=== PATIENT | male | born 2000 | race Two or more races ===

== ENCOUNTER 2024-06-17 16:51 | Inpatient (IN) | payer OTHER ==
[~2024-06-17] VITALS: Ht 170.2 cm; Wt 84.7 kg
[2024-06-17 18:47] LABS: BASOPHILS % (AUTO) 0.2 % (0.0-2.0); EOSINOPHILS % (AUTO) 0.2 % (1.0-6.0); HEMATOCRIT 44.2 % (41-53); HEMOGLOBIN 14.5 g/dL (13.5-17.5); LYMPHOCYTES # (AUTO) 1.6 K/uL (1.0-4.8); LYMPHOCYTES % (AUTO) 16.8 % (22.0-44.0); MEAN CORPUSCULAR HEMOGLOBIN 30.3 pg (26.0-34.0); MEAN CORPUSCULAR HGB CONC 32.7 G/dL (31.0-37.0); MEAN CORPUSCULAR VOLUME 93 fL (80-100); MONOCYTES # (AUTO) 0.5 K/uL (0.1-1.0); MONOCYTES % (AUTO) 5.3 % (2.0-9.0); NEUTROPHILS # (AUTO) 7.2 K/uL (1.8-7.7); NEUTROPHILS % (AUTO) 77.5 % (40.0-70.0); PLATELET COUNT (AUTO) 272 K/uL (150-450); RED BLOOD CELL COUNT(AUTO) 4.77 MIL/uL (4.50-5.90); WHITE BLOOD COUNT (AUTO) 9.3 K/uL (4.5-11.0)
[2024-06-17 18:54] LABS: ANION GAP 10 mmol/L (8-16); CALCIUM, TOTAL 9.1 mg/dL (8.8-10.5); CARBON DIOXIDE 27 mmol/L (22-29); CHLORIDE 105 mmol/L (98-107); CREATININE 0.85 mg/dL (0.60-1.30); GLOMERULAR FILTR. RATE CALC > 60 mL/min (>60); GLUCOSE,RANDOM 100 mg/dL (70-110); POTASSIUM 4.1 mmol/L (3.5-5.1); SODIUM SERUM 142 mmol/L (136-145); UREA NITROGEN, BLOOD 14 mg/dL (7-18)
[2024-06-17 19:36] LABS: COVID AG,FIA SOURCE NASAL SWAB
[2024-06-17 19:55] LABS: SARS-COV2 (COVID) ANTIGEN,FIA Negative (Negative)
[2024-06-18] VITALS (8 sets, daily range): BP systolic 108–134; BP diastolic 65–83; PULSE 50–60; RESP 18–19; TEMP 97.4–98.4; O2SAT 97–100
[2024-06-18 06:07] LABS: HIV 1-2 SCREEN 4TH GEN W/RFLX Non Reactive (Non Reactive)
[2024-06-18] MEDS ORDERED: SODIUM CHLORIDE 3% 15 ML NEB SOLUTION NEB ONE (07:46)
[2024-06-19 03:43] VITALS: BP 117/79; PULSE 66; RESP 20; TEMP 97.7; O2SAT 96
[2024-06-19 07:06] VITALS: BP 128/75; PULSE 68; RESP 18; TEMP 97.9; O2SAT 100
[2024-06-19 07:27] LABS: BASOPHILS % (AUTO) 0.6 % (0.0-2.0); EOSINOPHILS % (AUTO) 1.9 % (1.0-6.0); HEMATOCRIT 46.2 % (41-53); HEMOGLOBIN 15.6 g/dL (13.5-17.5); LYMPHOCYTES # (AUTO) 2.1 K/uL (1.0-4.8); LYMPHOCYTES % (AUTO) 25.4 % (22.0-44.0); MEAN CORPUSCULAR HGB CONC 33.8 G/dL (31.0-37.0); MEAN CORPUSCULAR VOLUME 92 fL (80-100); MONOCYTES # (AUTO) 0.4 K/uL (0.1-1.0); MONOCYTES % (AUTO) 5.1 % (2.0-9.0); NEUTROPHILS # (AUTO) 5.5 K/uL (1.8-7.7); PLATELET COUNT (AUTO) 268 K/uL (150-450); RED BLOOD CELL COUNT(AUTO) 5.05 MIL/uL (4.50-5.90); RED CELL DISTRIBUTION WIDTH 13.1 % (11.5-14.5); WHITE BLOOD COUNT (AUTO) 8.2 K/uL (4.5-11.0)
[2024-06-19 07:35] LABS: ANION GAP 6 mmol/L (8-16); CALCIUM, TOTAL 9.1 mg/dL (8.8-10.5); CARBON DIOXIDE 30 mmol/L (22-29); CHLORIDE 105 mmol/L (98-107); CREATININE 0.85 mg/dL (0.60-1.30); GLOMERULAR FILTR. RATE CALC > 60 mL/min (>60); GLUCOSE,RANDOM 105 mg/dL (70-110); SODIUM SERUM 141 mmol/L (136-145); UREA NITROGEN, BLOOD 10 mg/dL (7-18)
[2024-06-19 17:23] VITALS: BP 130/76; PULSE 79; RESP 19; TEMP 98.9; O2SAT 97
[2024-06-19 19:39] VITALS: BP 125/87; PULSE 60; RESP 18; TEMP 97.5; O2SAT 98
[2024-06-20 00:33] LABS: MTB PCR w/Rif. Resistance-SPUT NOT DETECTED (Not Detectd)
[2024-06-20 04:59] VITALS: BP 120/85; PULSE 60; RESP 18; TEMP 97.6; O2SAT 98
[2024-06-20 09:06] VITALS: BP 136/88; PULSE 61; RESP 18; TEMP 98.3; O2SAT 99
[2024-06-20 19:18] VITALS: BP 135/61; PULSE 86; RESP 18; TEMP 97.6; O2SAT 100
[2024-06-20 22:11] LABS: MTB PCR w/Rif. Resistance-SPUT NOT DETECTED (Not Detectd)
[2024-06-21 05:02] VITALS: BP 122/75; PULSE 63; RESP 18; TEMP 98.3; O2SAT 99
[2024-06-21 08:20] VITALS: BP 129/72; PULSE 65; RESP 18; TEMP 98; O2SAT 99
[2024-06-21 19:15] VITALS: BP 125/78; PULSE 60; RESP 18; TEMP 97.6; O2SAT 98
[2024-06-22 04:54] VITALS: BP 132/89; PULSE 61; RESP 18; TEMP 97.8; O2SAT 99
[2024-06-22 07:13] VITALS: BP 117/69; PULSE 60; RESP 18; TEMP 97.6; O2SAT 100
[2024-06-22 08:12] VITALS: BP 156/74; PULSE 70; RESP 18; TEMP 97.8; O2SAT 96
[2024-06-22 15:00] VITALS: BP 148/78; PULSE 68; RESP 20; TEMP 98.2; O2SAT 97
[2024-06-23 05:03] VITALS: BP 121/79; PULSE 60; RESP 19; TEMP 97.9; O2SAT 97
[2024-06-23 08:00] VITALS: BP 135/72; PULSE 70; RESP 19; TEMP 98.2; O2SAT 97
[2024-06-23 18:06] LABS: QUANTIFERON+, Nil Value 0.02 IU/mL; QUANTIFERON+,Mitogen Value >10.00 IU/mL; QUANTIFERON+,TB1 Antigen Value 0.08 IU/mL; QUANTIFERON+,TB2 Antigen Value 0.06 IU/mL; QUANTIFERON, TB GOLD PLUS Negative (Negative)
[2024-06-23] MEDS: HALOPERIDOL LACTATE 5 MG/ML VIAL IM ONE (20:08)
[2024-06-23 20:27] VITALS: BP 164/87; PULSE 103; RESP 20; TEMP 99.5; O2SAT 98
[2024-06-24 03:50] VITALS: BP 113/94; PULSE 78; RESP 18; O2SAT 100
[2024-06-24 08:28] VITALS: BP 138/92; PULSE 66; RESP 18; TEMP 98.3; O2SAT 99
[2024-06-24] MEDS: LORazepam 2 MG/ML VIAL IM ONE (08:48)
[2024-06-24] MEDS: HALOPERIDOL LACTATE 5 MG/ML VIAL IM ONE (18:25)
[2024-06-24 19:34] VITALS: BP 109/66; PULSE 63; RESP 18; TEMP 97.5; O2SAT 98
[2024-06-25 04:57] VITALS: BP 132/87; PULSE 70; RESP 18; TEMP 98.1; O2SAT 98
[2024-06-25 08:03] VITALS: BP 139/73; PULSE 111; RESP 18; TEMP 97.9; O2SAT 95
[2024-06-25] MEDS: DIVALPROEX SODIUM 500 MG DR TABLET PO SCH (12:13)
[2024-06-25] MEDS: RisperiDONE 2 MG TABLET PO SCH (12:13)
[2024-06-25 15:38] VITALS: BP 147/79; PULSE 126; RESP 18; TEMP 98.5; O2SAT 97
[2024-06-25] MEDS: HALOPERIDOL 5 MG TABLET PO PRN (15:51)
[2024-06-25] MEDS: HALOPERIDOL LACTATE 5 MG/ML VIAL IM ONE (18:40)
[2024-06-25] MEDS: LORazepam 2 MG/ML VIAL IM ONE (18:40)
[2024-06-25] MEDS: DiphenhydrAMINE HCL 50 MG/ML VIAL IM ONE (18:40)
[2024-06-25 20:13] VITALS: BP 126/66; PULSE 76; RESP 18; TEMP 97.8; O2SAT 95
[2024-06-26 20:04] VITALS: BP 133/81; PULSE 70; RESP 18; TEMP 98.4; O2SAT 96
[2024-06-27 05:42] VITALS: BP 140/79; PULSE 103; RESP 18; TEMP 98.5; O2SAT 97
[2024-06-27 08:49] VITALS: BP 121/69; PULSE 90; RESP 20; TEMP 97.5; O2SAT 98
[2024-06-27] MEDS: BENZTROPINE MESYLATE 0.5 MG TABLET PO SCH (11:30)
[2024-06-27 12:14] LABS: BASOPHILS % (AUTO) 0.4 % (0.0-2.0); EOSINOPHILS % (AUTO) 0.4 % (1.0-6.0); HEMATOCRIT 41.7 % (41-53); HEMOGLOBIN 14.1 g/dL (13.5-17.5); LYMPHOCYTES # (AUTO) 2.2 K/uL (1.0-4.8); LYMPHOCYTES % (AUTO) 22.6 % (22.0-44.0); MEAN CORPUSCULAR HEMOGLOBIN 30.7 pg (26.0-34.0); MEAN CORPUSCULAR HGB CONC 33.8 G/dL (31.0-37.0); MEAN CORPUSCULAR VOLUME 91 fL (80-100); MONOCYTES # (AUTO) 0.8 K/uL (0.1-1.0); MONOCYTES % (AUTO) 7.8 % (2.0-9.0); NEUTROPHILS # (AUTO) 6.7 K/uL (1.8-7.7); NEUTROPHILS % (AUTO) 68.8 % (40.0-70.0); PLATELET COUNT (AUTO) 209 K/uL (150-450); RED BLOOD CELL COUNT(AUTO) 4.58 MIL/uL (4.50-5.90); RED CELL DISTRIBUTION WIDTH 12.8 % (11.5-14.5); WHITE BLOOD COUNT (AUTO) 9.8 K/uL (4.5-11.0)
[2024-06-27 12:23] LABS: ANION GAP 11 mmol/L (8-16); CALCIUM, TOTAL 9.4 mg/dL (8.8-10.5); CARBON DIOXIDE 26 mmol/L (22-29); CHLORIDE 102 mmol/L (98-107); GLOMERULAR FILTR. RATE CALC > 60 mL/min (>60); GLUCOSE,RANDOM 97 mg/dL (70-110); POTASSIUM 3.4 mmol/L (3.5-5.1); SODIUM SERUM 139 mmol/L (136-145); UREA NITROGEN, BLOOD 20 mg/dL (7-18)
[2024-06-27 20:20] VITALS: BP 120/78; PULSE 80; RESP 18; TEMP 98.4; O2SAT 98
[2024-06-28 10:35] LABS: ANION GAP 5 mmol/L (8-16); CALCIUM, TOTAL 9.1 mg/dL (8.8-10.5); CARBON DIOXIDE 30 mmol/L (22-29); CHLORIDE 103 mmol/L (98-107); CREATININE 0.94 mg/dL (0.60-1.30); GLOMERULAR FILTR. RATE CALC > 60 mL/min (>60); GLUCOSE,RANDOM 138 mg/dL (70-110); POTASSIUM 3.7 mmol/L (3.5-5.1); SODIUM SERUM 138 mmol/L (136-145); UREA NITROGEN, BLOOD 15 mg/dL (7-18)
[2024-06-28 20:08] VITALS: BP 137/88; PULSE 66; RESP 18; TEMP 98.6; O2SAT 99
[2024-06-29 05:20] VITALS: BP 129/83; PULSE 86; RESP 18; TEMP 98.6; O2SAT 100
[2024-06-29 08:52] VITALS: BP 121/72; PULSE 68; RESP 18; TEMP 98.1; O2SAT 100
[2024-06-29] MEDS ORDERED: BENZ0.5T52 PO (11:42)
[2024-06-29] MEDS ORDERED: DIVA-112 PO (11:45)
[2024-06-29] MEDS ORDERED: RISP-32 PO (11:46)
[2024-06-29] MEDS ORDERED: HALO5TAB23 PO (11:48)
[2024-06-30 04:24] VITALS: BP 115/71; PULSE 67; RESP 18; TEMP 98.4; O2SAT 67
== END 2024-06-30 07:00 | DRG 204 ==
LOC: EMS 16:51 → ICUN 23:54 → 5S 23:54 → UNDOADMIN 23:54 → 4E 06-19 03:36 → 6S 06-25 16:51
PROVIDERS: ADMIT Hospitalist; ATTEND Hospitalist
DX: R05.9 Cough, unspecified (principal); E87.3 Alkalosis; F14.20 Cocaine dependence, uncomplicated; Z20.822 Contact with and (suspected) exposure to COVID-19; F25.0 Schizoaffective disorder, bipolar type; R61 Generalized hyperhidrosis; D72.0 Genetic anomalies of leukocytes; E87.6 Hypokalemia; Z91.51 Personal history of suicidal behavior; Z79.899 Other long term (current) drug therapy
CPT/HCPCS: 70450; 71045; 71250; 80048; 82140; 85025; 86480; 87015; 87206; 87389; 87556; 94640; 99285; G0378; J1200; J1630; J2060; 36415-L1; 36415-TC